=== PATIENT | female | born 1970 | race Caucasian/White ===

== ENCOUNTER 2016-08-24 19:16 | Emergency (ER) | payer OTHER ==
[2016-08-24] MEDS ORDERED: NORCO 5/325 MG PO ONE (20:14)
--- NOTE | 2016-08-24 20:19 | ERPHSYRPT ---
- History of Present Illness Time Seen by Provider: 08/24/16 20:11 Source: patient Physician History: CC: toe fracture Hx: 46 y/o patient of Dr Barbie Moctezuma was visiting [facility] yesterday. Bumped or stubbed right 5th toe while leaving. She has pain and bruising to the right foot. Had OP xray which showed nondisplaced right 5th toe fx. Dr sent her to ER for attention. She takes vicodin at home. She has Rx for new antiinflammatory ( unsure name) which she got yesterday but has not yet started. No allergies. Pain moderate and worse with walking. Allergies/Adverse Reactions: No Known Drug Allergies Allergy (Verified 06/18/15 15:11) Home Medications: Cyclobenzaprine HCl [Flexeril] 5 mg PO TID 11/27/14 [History] Clonazepam 0.5 mg [Klonopin 0.5 MG] 0.5 mg PO DAILY 04/23/15 [History] Hydrocodone Bit/Acetaminophen [[place] 7.5-325 Tablet] 1 each PO Q6HPRN PRN [History] Venlafaxine HCl 37.5 mg [Effexor 37.5 mg] 150 mg PO DAILY 08/17/15 [ History] Topiramate [Topamax] 50 mg PO BID 09/28/15 [History] PANTOPRAZOLE 40 mg Tablet [Protonix 40MG Tablet] 40 mg PO QAM 05/05/16 [ History] Sucralfate 1 gm [Carafate 1 GM] 1 g PO QID 05/05/16 [History] Hx Tetanus, Diphtheria Vaccination/Date Given: Yes (up to date) Hx Influenza Vaccination/Date Given: Yes Hx Pneumococcal Vaccination/Date Given: No - Review of Systems Constitutional: No Symptoms Musculoskeletal: Injury (right foot), No Back Pain, No Joint Swelling Neurological: No Focal Weakness, No Parasthesia - Past Medical History Pertinent Past Medical History: Yes Neurological History: Migraines Cardiac History: Hypertension Respiratory History: Pneumonia, Other Endocrine Medical History: Other Musculoskeletal History: Fractures, Osteoarthritis Other Medical History: liver enzymes are increased at times, SOB at times, - Past Surgical History Past Surgical History: Yes Gastrointestinal: Cholecystectomy Female Surgical History: Hysterectomy, Tubal Ligation, Other - Social History Smoking Status: Current every day smoker How long have you smoked: 15 Exposure to second hand smoke: No Drug Use: none Patient Lives Alone: Yes - Female History Hx Now: No - Physical Exam General Appearance: alert Eyes, Ears, Nose, Throat Exam: moist mucous membranes Cardiovascular/Respiratory Exam: regular rate/rhythm Neuro/Tendon Exam: normal sensation, normal motor functions 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, oriented x 3, cooperative Skin Exam: warm, dry Comments: right foot has some bruising 5th. Pulse intact. Tender right 5th toe. Skin intact. No swelling. - Course Nursing assessment & vital signs reviewed: Yes Ordered Tests: Active Orders 24 hr Category Date Time Status Splint STAT Care 08/24/16 20:14 Active FOOT (MINIMUM 3 VIEWS) Routine Exams 08/24/16 Taken Medication Summary Generic Name Dose Route Start Last Admin Trade Name Freq PRN Reason Stop Dose Admin Hydrocodone Bitart/Acetaminophen 1 tab 08/24/16 20:14 [place] 5/325 Mg PO 08/24/16 20:15 STAT ONE - Progress Progress Note: 08/24/16 20:17 Will olive tape and use post op shoe. Will release with instr. Counseled pt/family regarding: diagnosis, need for follow-up, rad results - Departure Time of Disposition: 20:17 Departure Disposition: Home Clinical Impression: Fracture of fifth toe, right, closed Condition: Stable Critical Care Time: No Referrals: TAL MOCTEZUMA [Primary Care Provider] - Instructions: Toe Fracture Additional Instructions: Ice, rest, post op shoe. Elevate. Use your anti-inflammatory medication as already prescribed.
[2016-08-24] MEDS ORDERED: NORCO 5/325 MG ONE (20:25)
[2016-08-24 20:36] VITALS: BP 120/56; PULSE 88; O2SAT 99
--- NOTE | 2016-08-25 08:32 | XRAY ---
Indication: Lateral pain following injury. Comparison: None 3 nonweightbearing views of the right foot demonstrates nondisplaced oblique fracture involving the shaft of the 5th proximal phalanx with adjacent soft tissue swelling. No other bony, articular, or soft tissue abnormalities.
== END 2016-08-24 20:36 | disposition home or self-care (01) ==
LOC: RAD 19:16 → ED 19:16 → EDSTATUS 20:05 → ED 20:36
DX: S92.501A Displaced unspecified fracture of right lesser toe(s), initial encounter for closed fracture (principal); W22.01XA Walked into wall, initial encounter
CPT/HCPCS: 73630; 99283; A9270-GY

== ENCOUNTER 2016-09-12 22:14 | Emergency (ER) | payer OTHER ==
[2016-09-12] MEDS ORDERED: Phenergan 25 MG INJ IM ONE (23:02)
[2016-09-12] MEDS ORDERED: Hydromorphone 1 mg/ml Ampule IM ONE (23:02)
--- NOTE | 2016-09-12 23:08 | ERPHSYRPT ---
- History of Present Illness Time Seen by Provider: 09/12/16 22:52 Source: patient Exam Limitations: no limitations Patient Subjective Stated Complaint: pt states she has had a migraine since 3 days ago and has been vomiting since yesterday. Triage Nursing Assessment: pt awake and alert. states her head hurts too bad to answer questions . pt ambualtory with steady gait noted. respirations nonlabored with lungs cta. pupils equal and reactive. bilat upper and lower ext strength wnl. Physician History: FOR THE PAST 3 DAYS PT HAS HAD A MIGRAINE HEADACHE IN THE USUAL LOCATION(OCCIPUT ) WITH NAUSEA, VOMITING X20 AND PHOTOPHOBIA. PT DENIES CHEST PAIN, SHORTNESS OF AIR, NUMBNESS, WEAKNESS. PT HAS HAD MIGRAINES FOR THE PAST 33 YEARS; LAST HEAD CT WAS 1 YEAR AGO & WNL. Allergies/Adverse Reactions: No Known Drug Allergies Allergy (Verified 06/18/15 15:11) Home Medications: Cyclobenzaprine HCl [Flexeril] 5 mg PO TID 11/27/14 [History] Clonazepam 0.5 mg [Klonopin 0.5 MG] 0.5 mg PO DAILY 04/23/15 [History] Hydrocodone Bit/Acetaminophen [[place] 7.5-325 Tablet] 1 each PO Q6HPRN PRN [History] Venlafaxine HCl 37.5 mg [Effexor 37.5 mg] 150 mg PO DAILY 08/17/15 [ History] Topiramate [Topamax] 50 mg PO BID 09/28/15 [History] PANTOPRAZOLE 40 mg Tablet [Protonix 40MG Tablet] 40 mg PO QAM 05/05/16 [ History] Sucralfate 1 gm [Carafate 1 GM] 1 g PO QID 05/05/16 [History] Hx Tetanus, Diphtheria Vaccination/Date Given: Yes (up to date) Hx Influenza Vaccination/Date Given: Yes Hx Pneumococcal Vaccination/Date Given: No Immunizations Up to Date: Yes - Review of Systems Eyes: Photophobia Abdominal/Gastrointestinal: Nausea, Vomiting Neurological: Headache All Other Systems: Reviewed and Negative - Past Medical History Pertinent Past Medical History: Yes Neurological History: Migraines Cardiac History: Hypertension Respiratory History: Pneumonia, Other Endocrine Medical History: Other Musculoskeletal History: Fractures, Osteoarthritis Other Medical History: liver enzymes are increased at times, SOB at times, - Past Surgical History Past Surgical History: Yes Gastrointestinal: Cholecystectomy Female Surgical History: Hysterectomy, Tubal Ligation, Other - Social History Smoking Status: Current every day smoker How long have you smoked: 15 Exposure to second hand smoke: No Drug Use: none Patient Lives Alone: Yes - Female History Hx Last Menstrual Period: hyster Hx Now: No - Nursing Vital Signs Nursing Vital Signs: Initial Vital Signs Temperature 98.1 F Temperature Source Oral Pulse Rate 73 Respiratory Rate 18 Blood Pressure [Right Arm] 131/78 Pain Intensity 8 - Physical Exam General Appearance: alert Eye Exam: PERRL/EOMI, photophobia Ears, Nose, Throat Exam: TMs normal, pharynx normal, moist mucous membranes Neck Exam: normal inspection Respiratory Exam: lungs clear Cardiovascular Exam: normal heart sounds Gastrointestinal/Abdominal Exam: soft, normal bowel sounds Extremity Exam: normal inspection, normal range of motion 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, 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 Exam: normal hearing, normal speech, PERRL Motor/Sensory Exam: no motor deficit, no sensory deficit, negative Babinski's sign Skin Exam: warm, dry SpO2 Interpretation: normal SpO2: 99 Oxygen Delivery: Room Air - Course Nursing assessment & vital signs reviewed: Yes Ordered Tests: Medication Summary Discontinued Medications Generic Name Dose Route Start Last Admin Trade Name Freq PRN Reason Stop Dose Admin Hydromorphone HCl 2 mg 09/12/16 23:02 Hydromorphone 1 Mg/Ml Ampule IM 09/12/16 23:03 STAT ONE Promethazine HCl 25 mg 09/12/16 23:02 Phenergan 25 Mg Inj IM 09/12/16 23:03 STAT ONE - Departure Time of Disposition: 23:09 Departure Disposition: Home Clinical Impression: MIGRAINE HEADACHE Condition: Stable Critical Care Time: No Instructions: Headache Additional Instructions: FOLLOW UP WITH PRIVATE DOCTOR TOMORROW. Prescriptions: Promethazine HCl 25 mg [Phenergan 25 mg] 25 mg PO Q4H PRN PRN #14 tablet PRN Reason: Nausea/Vomiting
[2016-09-12] MEDS ORDERED: Phenergan 25 MG INJ ONE (23:23)
[2016-09-12] MEDS ORDERED: Hydromorphone 1 mg/ml Ampule ONE (23:23)
[2016-09-13 00:05] VITALS: BP 111/59; PULSE 61; O2SAT 98
== END 2016-09-13 00:05 | disposition home or self-care (01) ==
LOC: ED 22:14
DX: G43.909 Migraine, unspecified, not intractable, without status migrainosus (principal)
CPT/HCPCS: 96372; 99284; J1170; J2550

== ENCOUNTER 2016-09-13 19:24 | Emergency (ER) | payer OTHER ==
[2016-09-13] MEDS ORDERED: TORAdol 30 mg Injection IM ONE (20:45)
--- NOTE | 2016-09-13 20:45 | ERPHSYRPT ---
- History of Present Illness Time Seen by Provider: 09/13/16 20:32 Source: patient Exam Limitations: no limitations (physical activity on) Patient Subjective Stated Complaint: pt states she was in the ER last night with a migraine that has been going on for about 5 days, headache still continues today, has began vomiting, unable to keep anything down Triage Nursing Assessment: pt ambulated onto unit, a&o x3, skin warm and pink, has an emesis bag that she has been spitting into, had washcloth over eyes complaining of light Physician History: The patient is a 46-year-old female with a friend complaining of a headache on the back left side of her head for 5 days. She is now vomiting. She came in to this ER last night for the same condition and received Dilaudid without relief. She's had a long history of migraine headaches. Her headaches changed 5 years ago when she fell down a set of stairs hurting her head. She did not have any aura preceding this headache. She states that there is a small area on the left back side of her head that is tender. Her past medical history significant for migraine headaches, UTI, chronic pain, and GERD. Timing/Duration: day(s) (5) Quality: sharpness, tightness Head Pain Location: occipital, parietal Severity of Pain-Max: moderate Severity of Pain-Current: moderate Recent Head Trauma: frequent headaches Modifying Factors: Improves With: medication Associated Symptoms: nausea/vomiting Previous symptoms: same symptoms as today Allergies/Adverse Reactions: No Known Drug Allergies Allergy (Verified 06/18/15 15:11) Home Medications: Cyclobenzaprine HCl [Flexeril] 10 mg PO TID 11/27/14 [History] Clonazepam 0.5 mg [Klonopin 0.5 MG] 0.5 mg PO DAILY 04/23/15 [History] Hydrocodone Bit/Acetaminophen [[place] 7.5-325 Tablet] 1 each PO Q6HPRN PRN [History] Venlafaxine HCl 37.5 mg [Effexor 37.5 mg] 150 mg PO DAILY 08/17/15 [ History] Topiramate [Topamax] 50 mg PO BID 09/28/15 [History] PANTOPRAZOLE 40 mg Tablet [Protonix 40MG Tablet] 40 mg PO QAM 05/05/16 [ History] Sucralfate 1 gm [Carafate 1 GM] 1 g PO QID 05/05/16 [History] Hx Tetanus, Diphtheria Vaccination/Date Given: Yes (up to date) Hx Influenza Vaccination/Date Given: Yes Hx Pneumococcal Vaccination/Date Given: No - Review of Systems Constitutional: No Fever, No Chills Eyes: No Symptoms Ears, Nose, & Throat: No Symptoms Respiratory: No Cough, No Dyspnea Cardiac: No Chest Pain, No Edema, No Syncope Abdominal/Gastrointestinal: Nausea, Vomiting Genitourinary Symptoms: No Dysuria Musculoskeletal: No Back Pain, No Neck Pain Skin: No Rash Neurological: Headache Psychological: No Symptoms Endocrine: No Symptoms Hematologic/Lymphatic: No Symptoms Immunological/Allergic: No Symptoms All Other Systems: Reviewed and Negative - Past Medical History Pertinent Past Medical History: Yes Neurological History: Migraines Cardiac History: Hypertension Respiratory History: Pneumonia, Other Endocrine Medical History: Other Musculoskeletal History: Fractures, Osteoarthritis Other Medical History: liver enzymes are increased at times, SOB at times, - Past Surgical History Past Surgical History: Yes Gastrointestinal: Cholecystectomy Female Surgical History: Hysterectomy, Tubal Ligation, Other - Social History Smoking Status: Current every day smoker How long have you smoked: 15 Exposure to second hand smoke: No Drug Use: none Patient Lives Alone: Yes - Female History Hx Now: No - Nursing Vital Signs Nursing Vital Signs: Initial Vital Signs Temperature 97.9 F Temperature Source Oral Pulse Rate 81 Respiratory Rate 18 Blood Pressure [Right Arm] 117/70 Pain Intensity 9 - Physical Exam General Appearance: mild distress Eye Exam: PERRL/EOMI Ears, Nose, Throat Exam: normal ENT inspection, moist mucous membranes Neck Exam: normal inspection, supple, full range of motion, other (Palpation of the superior aspect of the left neck and inferior aspect of the left occiput is significant for point tenderness that reproduces the pain the patient is having for her headache. 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 Exam: normal speech, PERRL, No facial droop Coordination/Gait Exam: normal cerebellar function Motor/Sensory Exam: no motor deficit, no sensory deficit Skin Exam: normal color, warm, dry, No rash SpO2 Interpretation: normal SpO2: 99 Oxygen Delivery: Room Air - Progress Progress: improved Blood Culture(s) Obtained: No Antibiotics given: No Counseled pt/family regarding: diagnosis - Departure Time of Disposition: 20:54 Departure Disposition: Home Clinical Impression: Tension headache, Vomiting Condition: Stable Critical Care Time: No Additional Instructions: You were given Toradol 60 mg, Phenergan 50 mg, and Flexeril 10 mg in the ER for your headache. You have a tension headache. Tried reduce the stressors in your life. Follow-up as needed.
[2016-09-13] MEDS ORDERED: Phenergan 25 MG INJ IM ONE (20:46)
[2016-09-13] MEDS ORDERED: Cyclobenzaprine 10 MG PO ONE (20:47)
[2016-09-13] MEDS ORDERED: Cyclobenzaprine 10 MG ONE (20:53)
[2016-09-13] MEDS ORDERED: TORAdol 30 mg Injection ONE (20:53)
[2016-09-13] MEDS ORDERED: Phenergan 25 MG INJ ONE (20:53)
[2016-09-13 21:04] VITALS: BP 119/61; PULSE 69; O2SAT 100
== END 2016-09-13 21:15 | disposition home or self-care (01) ==
LOC: ED 19:24
DX: G44.209 Tension-type headache, unspecified, not intractable (principal); R11.10 Vomiting, unspecified
CPT/HCPCS: 96372; 99284; J1885; J2550; A9270-GY

== ENCOUNTER 2016-12-09 19:04 | Emergency (ER) | payer OTHER ==
[2016-12-09] MEDS ORDERED: TORAdol 30 mg Injection IM ONE (19:24)
[2016-12-09] MEDS ORDERED: Phenergan 25 MG INJ IM ONE ×2 (19:24)
--- NOTE | 2016-12-09 19:27 | ERPHSYRPT ---
- History of Present Illness Time Seen by Provider: 12/09/16 19:25 Source: patient Exam Limitations: no limitations Patient Subjective Stated Complaint: pt complains of migraine for 3 days. today also reports lower back pain. also has nausea and vomiting x2. states she is unable to keep anything down today. also complains of photosensitivity. Triage Nursing Assessment: pt is aox3, pupils perrl, radial pulses strong and equal. 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 resps are easy and non labored. skin is pink warm dry Physician History: pt complains of migraine for 3 days. today also reports lower back pain. also has nausea and vomiting x2. states she is unable to keep anything down today. also complains of photosensitivity. Timing/Duration: day(s) (3 days) Severity of Pain-Max: moderate Severity of Pain-Current: severe Recent Head Trauma: frequent headaches Associated Symptoms: sensitive to light, vision changes Previous symptoms: same symptoms as today Allergies/Adverse Reactions: No Known Drug Allergies Allergy (Verified 12/09/16 19:18) Home Medications: Cyclobenzaprine HCl [Flexeril] 10 mg PO TID 11/27/14 [History] Clonazepam 0.5 mg [Klonopin 0.5 MG] 0.5 mg PO DAILY 04/23/15 [History] Hydrocodone Bit/Acetaminophen [[place] 7.5-325 Tablet] 1 each PO Q6HPRN PRN [History] Venlafaxine HCl 37.5 mg [Effexor 37.5 mg] 150 mg PO DAILY 08/17/15 [ History] Topiramate [Topamax] 50 mg PO BID 09/28/15 [History] PANTOPRAZOLE 40 mg Tablet [Protonix 40MG Tablet] 40 mg PO QAM 05/05/16 [ History] Sucralfate 1 gm [Carafate 1 GM] 1 g PO QID 05/05/16 [History] Hx Tetanus, Diphtheria Vaccination/Date Given: Yes Hx Influenza Vaccination/Date Given: No Hx Pneumococcal Vaccination/Date Given: No Immunizations Up to Date: Yes - Review of Systems Constitutional: No Fever, No Chills Eyes: No Symptoms Ears, Nose, & Throat: No Symptoms Respiratory: No Cough, No Dyspnea Cardiac: No Chest Pain, No Edema, No Syncope Abdominal/Gastrointestinal: No Abdominal Pain, No Nausea, No Vomiting, No Diarrhea Genitourinary Symptoms: No Dysuria Musculoskeletal: No Back Pain, No Neck Pain Skin: No Rash Neurological: Headache, No Dizziness, No Focal Weakness, No Sensory Changes Psychological: No Symptoms Endocrine: No Symptoms All Other Systems: Reviewed and Negative - Past Medical History Pertinent Past Medical History: Yes Neurological History: Migraines Cardiac History: Hypertension Respiratory History: Pneumonia, Other Endocrine Medical History: Other Musculoskeletal History: Fractures, Osteoarthritis Other Medical History: liver enzymes are increased at times, SOB at times, 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 - Past Surgical History Past Surgical History: Yes Gastrointestinal: Cholecystectomy Female Surgical History: Hysterectomy, Tubal Ligation, Other - Social History Smoking Status: Current every day smoker How long have you smoked: 15 Exposure to second hand smoke: No Drug Use: none Patient Lives Alone: No - Female History Hx Last Menstrual Period: Hx Now: No - Nursing Vital Signs Nursing Vital Signs: Initial Vital Signs Temperature 97.9 F 12/09/16 19:07 Pulse Rate 88 12/09/16 19:07 Respiratory Rate 18 12/09/16 19:07 Blood Pressure 107/57 12/09/16 19:07 O2 Sat by Pulse Oximetry 99 12/09/16 19:07 Pain Scale Pain Intensity 9 - Physical Exam General Appearance: no apparent distress Eye Exam: PERRL/EOMI Ears, Nose, Throat Exam: normal ENT inspection, moist mucous membranes Neck Exam: normal inspection, supple, full range of motion, No meningismus Respiratory Exam: normal breath sounds, lungs clear Cardiovascular Exam: regular rate/rhythm, normal heart sounds Gastrointestinal/Abdominal Exam: soft, No tenderness, No distention Back Exam: normal inspection, normal range of motion 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, 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 x 3, 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: normal speech, PERRL, No facial droop Coordination/Gait Exam: normal cerebellar function Motor/Sensory Exam: no motor deficit, no sensory deficit Skin Exam: normal color, warm, dry, No rash SpO2: 99 Oxygen Delivery: Room Air - Course Nursing assessment & vital signs reviewed: Yes Ordered Tests: Medication Summary Discontinued Medications Generic Name Dose Route Start Last Admin Trade Name Freq PRN Reason Stop Dose Admin Ketorolac Tromethamine 60 mg 12/09/16 19:24 Toradol 30 Mg Injection IM 12/09/16 19:25 STAT ONE Promethazine HCl 12.5 mg 12/09/16 19:24 Phenergan 25 Mg Inj IM 12/09/16 19:25 STAT ONE Promethazine HCl 25 mg 12/09/16 19:24 Phenergan 25 Mg Inj IM 12/09/16 19:25 STAT ONE - Progress Progress: improved Air Movement: good Counseled pt/family regarding: diagnosis, need for follow-up - Departure Time of Disposition: 19:49 Departure Disposition: Home Clinical Impression: Migraine Qualifiers: Migraine type: with aura Status migrainosus presence: without status migrainosus Intractability: intractable Qualified Code(s): G43.119 - Migraine with aura, intractable, without status migrainosus Condition: Stable Critical Care Time: No Referrals: TAL MOCTEZUMA [Primary Care Provider] - Instructions: Migraine, Headache Additional Instructions: HEADACHE 1. After discharge from the emergency department, you should rest at home in a cool, dark, quiet place for 12-24 hours. 2. If any of the following signs or symptoms are noticed, you should be re- evaluated right away: A. Visual changes B. Stiff Neck C. Change in quality or location of pain D. Fever E. Recurrent vomiting 3. If pain medications were prescribed or given, they may cause drowsiness.
[2016-12-09] MEDS ORDERED: TORAdol 30 mg Injection ONE (19:46)
[2016-12-09] MEDS ORDERED: Phenergan 25 MG INJ ONE (19:46)
[2016-12-09 20:08] VITALS: BP 117/60; PULSE 90; O2SAT 100
== END 2016-12-09 20:14 | disposition home or self-care (01) ==
LOC: ED 19:04
DX: G43.119 Migraine with aura, intractable, without status migrainosus (principal); M54.5 Low back pain; R11.2 Nausea with vomiting, unspecified; I10 Essential (primary) hypertension
CPT/HCPCS: 96372; 99283; J1885; J2550

== ENCOUNTER 2017-06-25 12:09 | Emergency (ER) | payer OTHER ==
[2017-06-25] MEDS ORDERED: TORAdol 30 mg Injection IM ONE (12:32)
[2017-06-25] MEDS ORDERED: Norflex 60 MG/2 ML IM ONE (12:32)
[2017-06-25] MEDS ORDERED: Norflex 60 MG/2 ML ONE (12:35)
[2017-06-25] MEDS ORDERED: TORAdol 30 mg Injection ONE ×2 (12:35→12:37)
--- NOTE | 2017-06-25 12:38 | ERPHSYRPT ---
- History of Present Illness Time Seen by Provider: 06/25/17 12:27 Source: patient Patient Subjective Stated Complaint: pt here for multi cos . headache since monday, sob and pain with deep breath today, vomiting today, no fever Triage Nursing Assessment: pt alert, walked in resp easy, skin w/d/p. no cough , no edema Physician History: CC: headache Hx: 46 y/o patient of Dr Barbie Moctezuma. She has hx of chronic pain syndrome. She takes norco. She has headache, similar to prior headaches, not relieved with icepacks. No fever. She took phenergan for nausea. She has some muscle pain in left back. No chest pain. No cough. No shortness of breath. No abd pain. Allergies/Adverse Reactions: No Known Drug Allergies Allergy (Verified 06/25/17 12:20) Home Medications: Cyclobenzaprine HCl [Flexeril] 10 mg PO TID 11/27/14 [History] Clonazepam 0.5 mg [Klonopin 0.5 MG] 0.5 mg PO DAILY 04/23/15 [History] Hydrocodone Bit/Acetaminophen [[place] 7.5-325 Tablet] 1 each PO Q6HPRN PRN [History] Venlafaxine HCl 37.5 mg [Effexor 37.5 mg] 150 mg PO DAILY 08/17/15 [ History] Topiramate [Topamax] 50 mg PO BID 09/28/15 [History] PANTOPRAZOLE 40 mg Tablet [Protonix 40MG Tablet] 40 mg PO QAM 05/05/16 [ History] Sucralfate 1 gm [Carafate 1 GM] 1 g PO QID 05/05/16 [History] Hx Tetanus, Diphtheria Vaccination/Date Given: No Hx Influenza Vaccination/Date Given: No Hx Pneumococcal Vaccination/Date Given: No Immunizations Up to Date: Yes - Review of Systems Constitutional: No Fever, No Chills Eyes: No Symptoms Ears, Nose, & Throat: No Symptoms Respiratory: No Cough, No Dyspnea Cardiac: No Chest Pain Abdominal/Gastrointestinal: Nausea, No Abdominal Pain, No Vomiting Musculoskeletal: Back Pain, No Neck Pain Skin: No Rash Neurological: Headache, No Focal Weakness, No Parasthesia All Other Systems: Reviewed and Negative - Past Medical History Pertinent Past Medical History: Yes Neurological History: Migraines Cardiac History: Hypertension Respiratory History: Pneumonia, Other Endocrine Medical History: Other Musculoskeletal History: Fractures, Osteoarthritis Other Medical History: liver enzymes are increased at times, SOB at times, 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 - Past Surgical History Past Surgical History: Yes Gastrointestinal: Cholecystectomy Female Surgical History: Hysterectomy, Tubal Ligation, Other - Social History Smoking Status: Current every day smoker How long have you smoked: 15 Exposure to second hand smoke: No Drug Use: none Patient Lives Alone: No - Female History Hx Last Menstrual Period: hyster Hx Now: No - Nursing Vital Signs Nursing Vital Signs: Initial Vital Signs Temperature 97.7 F 06/25/17 12:15 Pulse Rate 82 06/25/17 12:15 Respiratory Rate 16 06/25/17 12:15 Blood Pressure 104/78 06/25/17 12:15 O2 Sat by Pulse Oximetry 98 06/25/17 12:15 Pain Scale Pain Intensity 9 - Physical Exam General Appearance: alert Eye Exam: PERRL/EOMI Ears, Nose, Throat Exam: normal ENT inspection, moist mucous membranes Neck Exam: normal inspection, non-tender, supple Respiratory Exam: normal breath sounds Cardiovascular Exam: regular rate/rhythm Gastrointestinal/Abdomen Exam: soft, No tenderness, No distention Back Exam: normal inspection, point tenderness (left paraspinous muscles, thoracic), No vertebral tenderness Extremity Exam: normal inspection, No pedal edema Neurologic Exam: alert, oriented x 3, 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 Plans refill this week. INSEPCT reviewed. Toradol and norflex given here for symptom relief. Counseled pt/family regarding: diagnosis, need for follow-up - Departure Time of Disposition: 12:37 Departure Disposition: Home Clinical Impression: Spasm of thoracic back muscle Migraine headache Qualifiers: Migraine type: unspecified Status migrainosus presence: without status migrainosus Intractability: not intractable Qualified Code(s): G43.909 - Migraine, unspecified, not intractable, without status migrainosus Condition: Stable Critical Care Time: No Referrals: TAL MOCTEZUMA [Primary Care Provider] - Instructions: Migraine Headache (DC), Upper Back Pain (DC) Additional Instructions: HEADACHE 1. After discharge from the emergency department, you should rest at home in a cool, dark, quiet place for 12-24 hours. 2. If any of the following signs or symptoms are noticed, you should be re- evaluated right away: A. Visual changes B. Stiff Neck C. Change in quality or location of pain D. Fever E. Recurrent vomiting 3. If pain medications were prescribed or given, they may cause drowsiness. BACK INJURY 1. May apply moist heat frequently for relief of pain. Take care not to burn the skin. Do not use heat for more than 30 minutes at a time. 2. Try to sleep on a firm bed, flat on your back. 3. If no improvement is noticed in 2-3 days, follow up with your family physician. 4. If you notice any numbness, tingling, weakness, or problems with your bowel or bladder, you should call your family physician or return to the emergency department. No driving today. Follow up with Dr Barbie Moctezuma.
[2017-06-25 13:04] VITALS: PULSE 72
[2017-06-25 13:33] VITALS: BP 106/74; O2SAT 98
== END 2017-06-25 13:32 | disposition home or self-care (01) ==
LOC: ED 12:09
DX: G43.909 Migraine, unspecified, not intractable, without status migrainosus (principal); M62.830 Muscle spasm of back; Z79.899 Other long term (current) drug therapy
CPT/HCPCS: 96372; 96374; 99283; 99284; J1885; J2360

== ENCOUNTER 2018-05-18 14:05 | Emergency (ER) | payer MEDICAID, OTHER ==
[2018-05-18 14:16] VITALS: O2SAT 98
[2018-05-18] MEDS ORDERED: TORAdol 30 mg Injection IM ONE (14:24)
--- NOTE | 2018-05-18 14:31 | ERPHSYRPT ---
- History of Present Illness Time Seen by Provider: 05/18/18 14:15 Source: patient Exam Limitations: clinical condition Patient Subjective Stated Complaint: Pt states "On monday I was going to the car and I slipped on ice and landed flat on my backside. Now my tailbone hurts and the pain is shooting down into my legs and up into my back." Triage Nursing Assessment: Pt alert and oriented X 3, skin pwd Pt ambualtes with a slow upright steady gait, able to speak in clear full sentences. Physician History: PATIENT WITH A HISTORY OF MIGRAINE HEADACHE, CHRONIC LOW BACK PAIN, DEGENERATIVE DISC DISEASE WHO COMPLAINS OF A SLIP AND FALL 5 DAYS AGO LANDED ONTO HER TAILBONE AND HAS PERSISTENT PAIN. DENIES ASSOCIATED HEAD, NECK AND BACK INJURY. Occurred: days ago (5) Reason for Fall: slipped Injuries/Pain Location: back Loss of Consciousness: no loss of consciousness Quality: throbbing Severity of Pain-Max: moderate Severity of Pain-Current: moderate Modifying Factors: Improves With: other (SITTING POSITION) Associated Symptoms (Fall): denies symptoms Allergies/Adverse Reactions: No Known Drug Allergies Allergy (Verified 06/25/17 12:20) Home Medications: Cyclobenzaprine HCl [Flexeril] 10 mg PO TID 11/27/14 [History] Clonazepam 0.5 mg [Klonopin 0.5 MG] 0.5 mg PO DAILY 04/23/15 [History] Hydrocodone Bit/Acetaminophen [[place] 7.5-325 Tablet] 1 each PO Q6HPRN PRN [History] Venlafaxine HCl 37.5 mg [Effexor 37.5 mg] 150 mg PO DAILY 08/17/15 [ History] Topiramate [Topamax] 50 mg PO BID 09/28/15 [History] PANTOPRAZOLE 40 mg Tablet [Protonix 40MG Tablet] 40 mg PO QAM 05/05/16 [ History] Sucralfate 1 gm [Carafate 1 GM] 1 g PO QID 05/05/16 [History] Hx Tetanus, Diphtheria Vaccination/Date Given: No Hx Influenza Vaccination/Date Given: Yes Hx Pneumococcal Vaccination/Date Given: No Immunizations Up to Date: Yes - Review of Systems Constitutional: No Symptoms, No Fever, No Chills Eyes: No Symptoms Ears, Nose, & Throat: No Symptoms Respiratory: No Symptoms, No Cough, No Dyspnea Cardiac: No Symptoms, No Chest Pain, No Edema, No Syncope Abdominal/Gastrointestinal: No Abdominal Pain, No Nausea, No Vomiting, No Diarrhea Genitourinary Symptoms: No Dysuria Musculoskeletal: Other (TAIL BONE PAIN), No Back Pain, No Neck Pain Skin: No Rash Neurological: No Dizziness, No Focal Weakness, No Sensory Changes Psychological: No Symptoms Endocrine: No Symptoms All Other Systems: Reviewed and Negative - Past Medical History Pertinent Past Medical History: Yes Neurological History: Migraines Cardiac History: Hypertension Respiratory History: Pneumonia, Other Endocrine Medical History: Other Musculoskeletal History: Fractures, Osteoarthritis Other Medical History: liver enzymes are increased at times, SOB at times, 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 - Past Surgical History Past Surgical History: Yes Gastrointestinal: Cholecystectomy Female Surgical History: Hysterectomy, Tubal Ligation, Other - Social History Smoking Status: Former smoker How long have you smoked: 15 Exposure to second hand smoke: No Drug Use: none Patient Lives Alone: No - Female History Hx Now: No - Nursing Vital Signs Nursing Vital Signs: Initial Vital Signs Temperature 98.0 F 05/18/18 14:09 Pulse Rate 80 05/18/18 14:09 Respiratory Rate 16 05/18/18 14:09 Blood Pressure 102/70 05/18/18 14:09 O2 Sat by Pulse Oximetry 98 05/18/18 14:09 Pain Scale Pain Intensity [Posterior 8 Sacrum] Pain Intensity 7 - Physical Exam General Appearance: no apparent distress, alert Back Exam: normal inspection, normal range of motion, other (THERE IS MINIMAL TENDERNESS OVER COCCYX, NO SWELLING, CREPITUS OR ECCHYMOSIS. THERE IS NO SACROILAC TENDERNESS, NO LUMBAR SPINAL OR PARASPINAL TENDERNESS) SpO2: 98 - Radiology Exams Other X-ray Interpretation: Discussed w/ radiologist (COCCYX AND SACRUM WITH NO BONY, ARTICULAR OR SOFT TISSUE ABNORMALITIES) Ordered Tests: Active Orders 24 hr Category Date Time Status SACRUM AND COCCYX Stat Exams 05/18/18 14:43 Taken Medication Summary Discontinued Medications Generic Name Dose Route Start Last Admin Trade Name Freq PRN Reason Stop Dose Admin Ketorolac Tromethamine 60 mg 05/18/18 14:24 05/18/18 14:43 Toradol 30 Mg Injection IM 05/18/18 14:25 60 mg STAT ONE Administration Ketorolac Tromethamine Confirm 05/18/18 14:40 Toradol 30 Mg Injection Administered 05/18/18 14:41 Dose 60 mg .ROUTE .STK-MED ONE - Progress Progress: pain not gone completely Progress Note: 05/18/18 14:32 ADMINISTERED TORADOL 60MG IM, Counseled pt/family regarding: diagnosis, rad results - Departure Time of Disposition: 15:03 Departure Disposition: Home Clinical Impression: Coccyx contusion Condition: Stable Critical Care Time: No Referrals: TAL MOCTEZUMA [Primary Care Provider] - Additional Instructions: OBTAIN A DOUGHNUT AIR PILLOW TO SIT ON FOR COMFORT. TORADOL 10MG EVERY 6 HOURS FOR PAIN NEEDED. CONSULT YOUR PRIMARY CARE PROVIDER FOR FOLLOWUP. Prescriptions: Ketorolac Tromethamine [Toradol] 10 mg PO Q6H PRN PRN #20 tablet PRN Reason: Pain
[2018-05-18] MEDS ORDERED: TORAdol 30 mg Injection ONE (14:40)
--- NOTE | 2018-05-18 14:54 | XRAY ---
Indication: Coccygeal pain following fall 5 days ago. Comparison: None 3 views of the sacrum/coccyx obtained. No bony, articular, or soft tissue abnormalities.
[2018-05-18 15:03] VITALS: BP 100/72
[2018-05-18 15:19] VITALS: PULSE 70
== END 2018-05-18 15:17 | disposition home or self-care (01) ==
LOC: ED 14:05
DX: S30.0XXA Contusion of lower back and pelvis, initial encounter (principal); W00.0XXA Fall on same level due to ice and snow, initial encounter; Y92.89 Other specified places as the place of occurrence of the external cause; M54.5 Low back pain; G89.29 Other chronic pain; Z79.899 Other long term (current) drug therapy; I10 Essential (primary) hypertension
CPT/HCPCS: 72220; 96372; 99284; J1885

== ENCOUNTER 2018-10-19 12:37 | Emergency (ER) | payer MEDICAID, OTHER ==
[2018-10-19] MEDS ORDERED: Sodium Chloride 0.9% 1000 ML 1,000 ML IV STA (13:11)
[2018-10-19] MEDS ORDERED: TORAdol 30 mg Injection IM ONE (13:11)
[2018-10-19] MEDS ORDERED: Phenergan 25 MG INJ IM ONE (13:11)
--- NOTE | 2018-10-19 13:16 | ERPHSYRPT ---
- History of Present Illness Time Seen by Provider: 10/19/18 13:08 Source: patient Exam Limitations: no limitations Patient Subjective Stated Complaint: states has had a migraine for two days. states home meds are not helping. has vomited several times. Triage Nursing Assessment: ambulated to room per self. vomiting samll amts. skin w/d, color normal, resp easy. pierre. a/o times three. chong without difficulty. Physician History: 48-year-old white female arrives with complaint of a headache x2 days she states she's had some vomiting she states that she has [place] at home but she has not been taking it. Patient without any fevers. Past medical history includes migraines, high blood pressure, pneumonia, fractures, osteoarthritis, chronic pain syndrome. Past surgical history includes cholecystectomy hysterectomy, tubal ligation. Social history former smoker Timing/Duration: day(s) Severity: moderate (2 days) Modifying Factors: Improves With: nothing Associated Symptoms: nausea, vomiting, headaches, No abdominal pain, No shortness of breath, No heartburn, No diaphoresis, No cough, No chills, No chest pain, No fever, No loss of appetite, No malaise, No rash, No syncope, No seizure, No weakness Allergies/Adverse Reactions: No Known Drug Allergies Allergy (Verified 10/19/18 13:00) Home Medications: Clonazepam 0.5 mg [Klonopin 0.5 MG] 0.5 mg PO DAILY 04/23/15 [History] Hydrocodone Bit/Acetaminophen [[place] 7.5-325 Tablet] 1 each PO Q6HPRN PRN [History] Venlafaxine HCl 37.5 mg [Effexor 37.5 mg] 150 mg PO DAILY 08/17/15 [ History] Topiramate [Topamax] 50 mg PO BID 09/28/15 [History] Lipase/Protease/Amylase [[place] 24,000 Units Capsule] 1 each PO UD 10/19/18 [ History] Naratriptan HCl [Amerge] 2.5 mg PO UD 10/19/18 [History] Hx Tetanus, Diphtheria Vaccination/Date Given: Yes Hx Influenza Vaccination/Date Given: Yes Hx Pneumococcal Vaccination/Date Given: No - Review of Systems Constitutional: No Fever, No Chills Eyes: Photophobia, No Discharge, No Eye Pain, No Eye Redness, No Tearing, No Vision Changes, No Double Vision, No Foreign Body Sensation Ears, Nose, & Throat: No Symptoms Respiratory: No Cough, No Dyspnea Cardiac: No Chest Pain, No Edema, No Syncope Abdominal/Gastrointestinal: Nausea, Vomiting, No Abdominal Pain, No Diarrhea Genitourinary Symptoms: No Dysuria Musculoskeletal: No Back Pain, No Neck Pain Skin: No Rash Neurological: Headache, No Dizziness, No Focal Weakness, No Gait Changes, No Irritability, No Lethargy, No Paralysis, No Parasthesia, No Seizure, No Sensory Changes, No Speech Changes, No Tics, No Tremors, No Vertigo Psychological: No Symptoms Endocrine: No Symptoms All Other Systems: Reviewed and Negative - Past Medical History Pertinent Past Medical History: Yes Neurological History: Migraines Cardiac History: Hypertension Respiratory History: Pneumonia, Other Endocrine Medical History: Other Musculoskeletal History: Fractures, Osteoarthritis Other Medical History: liver enzymes are increased at times, SOB at times, 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 - Past Surgical History Past Surgical History: Yes Gastrointestinal: Cholecystectomy Female Surgical History: Hysterectomy, Tubal Ligation, Other - Social History Smoking Status: Current every day smoker How long have you smoked: 20 Exposure to second hand smoke: No Drug Use: none Patient Lives Alone: Yes - Female History Hx Now: No - Nursing Vital Signs Nursing Vital Signs: Initial Vital Signs Temperature 98.3 F 10/19/18 12:52 Pulse Rate 67 10/19/18 12:52 Respiratory Rate 18 10/19/18 12:52 Blood Pressure 127/74 10/19/18 12:52 O2 Sat by Pulse Oximetry 100 10/19/18 12:52 Pain Scale Pain Intensity 6 - Physical Exam General Appearance: moderate distress, alert Eye Exam: PERRL/EOMI, eyes nml inspection, photophobia, other (fundi unremarkable) Ears, Nose, Throat Exam: normal ENT inspection, TMs normal, pharynx normal, moist mucous membranes Neck Exam: normal inspection, non-tender, supple, full range of motion Respiratory Exam: normal breath sounds, lungs clear, No respiratory distress Cardiovascular Exam: regular rate/rhythm, normal heart sounds, normal peripheral pulses, capillary refill <2 sec Gastrointestinal/Abdomen Exam: soft, normal bowel sounds, No tenderness, No mass Back Exam: normal inspection, normal range of motion, No CVA tenderness, No vertebral tenderness Extremity Exam: normal inspection, normal range of motion, pelvis stable Neurologic Exam: alert, oriented x 3, cooperative, prosthodontist/educator II-XII nml as tested, normal mood/affect, nml cerebellar function, nml station & gait, sensation nml, No motor deficits Skin Exam: normal color, warm, dry, No rash SpO2 Interpretation: normal (100%) SpO2: 100 Ordered Tests: Medication Summary Discontinued Medications Generic Name Dose Route Start Last Admin Trade Name [place] PRN Reason Stop Dose Admin Sodium Chloride 1,000 mls @ 999 mls/hr 10/19/18 13:11 10/19/18 15:06 Sodium Chloride 0.9% 1000 Ml IV 10/19/18 14:11 Infused .Q1H1M STA Infusion Sodium Chloride Confirm 10/19/18 13:23 Sodium Chloride 0.9% 1000 Ml Administered 10/19/18 13:24 Dose 1,000 mls @ ud .ROUTE .STK-MED ONE Ketorolac Tromethamine 60 mg 10/19/18 13:11 10/19/18 13:30 Toradol 30 Mg Injection IM 10/19/18 13:12 60 mg STAT ONE Administration Ketorolac Tromethamine Confirm 10/19/18 13:23 Toradol 30 Mg Injection Administered 10/19/18 13:24 Dose 60 mg .ROUTE .STK-MED ONE Promethazine HCl 25 mg 10/19/18 13:11 10/19/18 13:29 Phenergan 25 Mg Inj IM 10/19/18 13:12 25 mg STAT ONE Administration Promethazine HCl Confirm 10/19/18 13:23 Phenergan 25 Mg Inj Administered 10/19/18 13:24 Dose 25 mg .ROUTE .STK-MED ONE - Progress Progress: improved Progress Note: 10/19/18 14:04 Patient is feeling better after IM Phenergan and IM Toradol. Will let patient received her IV fluids. And plan on discharging. Patient is chronically on hydrocodone/acetaminophen 7.5/325. - Departure Departure Disposition: Home Clinical Impression: Migraine Qualifiers: Migraine type: unspecified Status migrainosus presence: without status migrainosus Intractability: not intractable Qualified Code(s): G43.909 - Migraine, unspecified, not intractable, without status migrainosus Condition: Fair Critical Care Time: No Referrals: TAL MOCTEZUMA [Primary Care Provider] - Additional Instructions: Return home. Rest in a dark quiet room. Followup with your family if recurrent. Return for acute distress or for severe symptoms.
[2018-10-19] MEDS ORDERED: Phenergan 25 MG INJ ONE (13:23)
[2018-10-19] MEDS ORDERED: TORAdol 30 mg Injection ONE (13:23)
[2018-10-19] MEDS ORDERED: Sodium Chloride 0.9% 1000 ML 1,000 ML ONE (13:23)
[2018-10-19 15:05] VITALS: BP 91/58; PULSE 66
[2018-10-20 07:16] VITALS: O2SAT 100
== END 2018-10-19 15:11 | disposition home or self-care (01) ==
LOC: ED 12:37
DX: G43.909 Migraine, unspecified, not intractable, without status migrainosus (principal)
CPT/HCPCS: 36000; 96360; 96372; 99284; J1885; J2550

== ENCOUNTER 2019-05-10 16:53 | Emergency (ER) | payer OTHER ==
[2019-05-10] MEDS ORDERED: Hydromorphone 1 mg/ml Ampule IM ONE (18:08)
[2019-05-10] MEDS ORDERED: Phenergan 25 MG INJ IM ONE (18:09)
--- NOTE | 2019-05-10 18:16 | ERPHSYRPT ---
- History of Present Illness Time Seen by Provider: 05/10/19 17:20 Source: patient Exam Limitations: no limitations Patient Subjective Stated Complaint: Pt states that she has had a migraine for a couple of days and took naratriptine and topamax yesterday with no relief and has been vomiting today so she did not take any meds, pt has a hx of migraines, pt states that she gets more than 6 migraines a year but can usually control them Triage Nursing Assessment: Pt was brought to the ER by her boyfriend, pt is laying in the dark with a cold rag on her head, no difficulties with strength, PERRL, rates head pain 9/10, states that pain is in the back of her head and radiates down her neck, pulses normal, vitals wnl Physician History: This is a 52-year-old female who presents with her typical migraine. Patient tried her naratriptan and Topamax without any relief of her symptoms. She has light sensitivity and noise sensitivity. Patient was vomiting today and therefore she sought medical evaluation here in the emergency department. Patient sees her neurologist on a regular basis. She usually has 6 migraine episodes a year. Patient denies shortness of breath she denies flulike symptoms , she denies chest pain and denies abdominal pain. Timing/Duration: yesterday Quality: aching, throbbing Head Pain Location: global Severity of Pain-Max: moderate Severity of Pain-Current: moderate Recent Head Trauma: no recent headache/trauma, occasional headaches Modifying Factors: Improves With: exposure to light, noise Associated Symptoms: nausea/vomiting, sensitive to light, No fever/chills, No loss of consciousness, No neck pain, No stiff neck Previous symptoms: same symptoms as today Allergies/Adverse Reactions: No Known Drug Allergies Allergy (Verified 05/10/19 17:48) Home Medications: Clonazepam 0.5 mg [Klonopin 0.5 MG] 0.5 mg PO DAILY PRN 04/23/15 [History] Topiramate [Topamax] 100 mg PO BID 09/28/15 [History] Naratriptan HCl [Amerge] 2.5 mg PO UD PRN 10/19/18 [History] Gabapentin 300 mg PO DAILY 05/10/19 [History] Tizanidine HCl 4 mg [Zanaflex 4 MG] 4 mg PO DAILY 05/10/19 [History] Hx Tetanus, Diphtheria Vaccination/Date Given: Yes Hx Influenza Vaccination/Date Given: Yes Hx Pneumococcal Vaccination/Date Given: No - Review of Systems Constitutional: No Symptoms Eyes: No Symptoms Ears, Nose, & Throat: No Symptoms Respiratory: No Symptoms Cardiac: No Symptoms Abdominal/Gastrointestinal: Nausea, Vomiting Genitourinary Symptoms: No Symptoms Musculoskeletal: No Symptoms Skin: No Symptoms Neurological: No Symptoms Psychological: No Symptoms Endocrine: No Symptoms Hematologic/Lymphatic: No Symptoms Immunological/Allergic: No Symptoms All Other Systems: Reviewed and Negative - Past Medical History Pertinent Past Medical History: Yes Neurological History: Migraines Cardiac History: Hypertension Respiratory History: Pneumonia, Other Endocrine Medical History: Other Musculoskeletal History: Fractures, Osteoarthritis GI Medical History: No Pertinent History History: No Pertinent History Psycho-Social History: No Pertinent History Female Reproductive Disorders: No Pertinent History Other Medical History: liver enzymes are increased at times, SOB at times, 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 - Past Surgical History Past Surgical History: Yes Neuro Surgical History: No Pertinent History Cardiac: No Pertinent History Respiratory: No Pertinent History Gastrointestinal: Cholecystectomy Genitourinary: No Pertinent History Musculoskeletal: No Pertinent History Female Surgical History: Hysterectomy, Tubal Ligation, Other - Social History Smoking Status: Current every day smoker How long have you smoked: 20 Exposure to second hand smoke: Yes Drug Use: none Patient Lives Alone: No - Female History Hx Now: No (hysterectomy) - Nursing Vital Signs Nursing Vital Signs: Initial Vital Signs Temperature 98.0 F 05/10/19 17:33 Pulse Rate 85 05/10/19 17:33 Respiratory Rate 14 05/10/19 17:33 Blood Pressure 114/75 05/10/19 17:33 O2 Sat by Pulse Oximetry 100 05/10/19 17:33 Pain Scale Pain Intensity 9 - Physical Exam General Appearance: moderate distress, alert, anxiety Eye Exam: PERRL/EOMI, eyes nml inspection Ears, Nose, Throat Exam: normal ENT inspection, moist mucous membranes Neck Exam: normal inspection, non-tender, supple, full range of motion Respiratory Exam: normal breath sounds, lungs clear, airway intact, No chest tenderness, No respiratory distress Cardiovascular Exam: regular rate/rhythm, normal heart sounds, normal peripheral pulses Gastrointestinal/Abdominal Exam: No tenderness Extremity Exam: normal inspection, normal range of motion, pelvis stable 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, oriented x 3, cooperative water mangle tender Exam: normal hearing, normal speech Coordination/Gait Exam: normal gait Motor/Sensory Exam: no motor deficit, no sensory deficit Skin Exam: normal color, warm, dry Lymphatic Exam: No adenopathy SpO2 Interpretation: normal SpO2: 100 O2 Delivery: Room Air - Course Nursing assessment & vital signs reviewed: Yes Ordered Tests: Medication Summary Generic Name Dose Route Start Last Admin Trade Name Freq PRN Reason Stop Dose Admin Hydromorphone HCl 0.5 mg 05/10/19 18:08 Hydromorphone 1 Mg/Ml Ampule IM 05/10/19 18:09 STAT ONE Promethazine HCl 25 mg 05/10/19 18:09 Phenergan 25 Mg Inj IM 05/10/19 18:10 STAT ONE - Progress Progress: improved, re-examined Air Movement: good Blood Culture(s) Obtained: No Antibiotics given: No Counseled pt/family regarding: diagnosis, need for follow-up - Departure Departure Disposition: Home Clinical Impression: Migraine headache Condition: Stable Critical Care Time: No Referrals: TAL MOCTEZUMA [Primary Care Provider] - Additional Instructions: Follow-up with your neurologist for persistent symptoms. Drink plenty of fluids. Take your medication as prescribed Prescriptions: Ondansetron ODT 4 MG [Zofran Odt 4 mg] 4 mg PO Q6H PRN PRN #10 tab.rapdis PRN Reason: Vomiting
[2019-05-10] MEDS ORDERED: Phenergan 25 MG INJ ONE (18:26)
[2019-05-10] MEDS ORDERED: Hydromorphone 1 mg/ml Ampule ONE (18:26)
[2019-05-10 19:33] VITALS: BP 117/77; PULSE 72; O2SAT 96
== END 2019-05-10 19:33 | disposition home or self-care (01) ==
LOC: ED 16:53
DX: G43.909 Migraine, unspecified, not intractable, without status migrainosus (principal)
CPT/HCPCS: 96372; 99284; J1170; J2550

== ENCOUNTER 2024-02-02 08:42 | Emergency (ER) | payer OTHER ==
--- NOTE | 2024-02-02 08:48 | ERPHSYRPT ---
- History of Present Illness Time Seen by Provider: 02/02/24 08:48 Source: patient Exam Limitations: no limitations Physician History: This a 53-year-old white female patient who was brought over to the emergency department from the CT scanner in the radiology suite secondary to possible allergic reaction to contrast dye with questionable loss of consciousness. She does not recall all the events. She does have a history of a seizure in the recent past. She was undergoing a CT scan of the chest with contrast to continue the workup for her chronic intermittent chest discomfort. Patient denies head injury. She has no shortness of breath. She has no evidence of rash the itching has improved but still present. Patient has a history of migraine headache, hypertension, osteoarthritis, chronic intermittent elevated liver function tests. Patient states she is under a lot of stress with recent family member deaths. Patient's primary care provider is Dr. Wagner. Timing/Duration: today Severity: mild Character of Deficits: none Deficits: no difficulties Baseline/Normal Cognition: alert oriented x 3 Current Cognition: alert oriented x 3 Baseline Gait: walks w/o assistance Associated Symptoms: denies symptoms Allergies/Adverse Reactions: Iodinated Contrast Media Adverse Reaction (Severe, Verified 02/02/24 09:10) Headache HEADACHE WAS SO SEVERE WHILE IN CT THAT SHE WAS ADMITTED TO EMERGENCY ROOM Home Medications: Topiramate [Topamax] 25 mg PO DAILY 09/28/15 [History] Gabapentin 300 mg PO BID 05/10/19 [History] Cyanocobalamin 1000 Mcg/ml [Cyanocobalamin B-12 1000 MCG/ML] 1,000 mcg IJ UD 02/02/24 [History] Ezetimibe 10 mg [Zetia 10 MG] 10 mg PO DAILY 02/02/24 [History] Fremanezumab-Vfrm [Ajovy Autoinjector] 225 mg SQ UD 02/02/24 [History] Hydrocodone/Acetaminophen [Hydrocodone-Acetamin 7.5-325] 1 each PO TID 02/02/24 [History] Sertraline HCl [Zoloft] 25 mg PO DAILY 02/02/24 [History] risperiDONE [Risperdal] 0.5 mg PO DAILY 02/02/24 [History] Hx Tetanus, Diphtheria Vaccination/Date Given: Yes Hx Influenza Vaccination/Date Given: Yes Hx Pneumococcal Vaccination/Date Given: No Travel Risk - International Travel Have you traveled outside of the country in past 3 weeks: No - Emerging Infectious Disease Are you exhibiting symptoms associated with any current EIDs: No - Past Medical History Pertinent Past Medical History: Yes Neurological History: Migraines Cardiac History: Hypertension Respiratory History: Other, Pneumonia Endocrine Medical History: Other Musculoskeletal History: Fractures, Osteoarthritis GI Medical History: No Pertinent History History: No Pertinent History Psycho-Social History: No Pertinent History Female Reproductive Disorders: No Pertinent History Other Medical History: liver enzymes are increased at times, SOB at times, 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 - Past Surgical History Past Surgical History: Yes Neuro Surgical History: No Pertinent History Cardiac: No Pertinent History Respiratory: No Pertinent History Gastrointestinal: Cholecystectomy Genitourinary: No Pertinent History Musculoskeletal: No Pertinent History Female Surgical History: Hysterectomy, Tubal Ligation, Other - Female History Hx Last Menstrual Period: n/a - Social History Smoking Status: Current every day smoker How long have you smoked: 20 Exposure to second hand smoke: Yes Drug Use: none Patient Lives Alone: No - Nursing Vital Signs Nursing Vital Signs: Initial Vital Signs Pulse Rate 74 02/02/24 08:42 Respiratory Rate 13 02/02/24 08:42 Blood Pressure 135/77 02/02/24 08:42 Pain Scale Pain Intensity 3 - [place] Coma Scale Best Eye Response (Joseph): (4) open spontaneously Best Verbal Response ([place]): (5) oriented Best Motor Response ([place]): (6) obeys commands [place] Total: 15 - Physical Exam General Appearance: no apparent distress, alert, anxiety Eye Exam: bilateral eye: normal inspection, PERRL, EOMI Ears, Nose, Throat Exam: normal ENT inspection, pharynx normal, moist mucous membranes Neck Exam: normal inspection, non-tender, supple, full range of motion Respiratory: normal breath sounds, lungs clear, airway intact, No chest tenderness, No respiratory distress Cardiovascular: regular rate/rhythm, normal heart sounds, normal peripheral pulses Gastrointestinal: soft, normal bowel sounds, No tenderness Pelvic Exam: not done Rectal Exam: not done Back Exam: normal inspection, normal range of motion, No CVA tenderness, No vertebral tenderness Extremity Exam: normal inspection, normal range of motion, pelvis stable Mental Status: alert, oriented x 3, 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 STAT Care 02/02/24 09:08 Active Clean Catch Urine Specimen STAT Care 02/02/24 09:04 Active EKG-ER Only STAT Care 02/02/24 09:04 Active IV Insertion STAT Care 02/02/24 09:04 Active Pulse Oximetry (ED) STAT Care 02/02/24 09:04 Active HEAD WITHOUT CONTRAST [CT] Stat Exams 02/02/24 09:04 Completed CBC W DIFF Stat Lab 02/02/24 09:30 Completed CMP Stat Lab 02/02/24 09:30 Completed TROPONIN Q4H Lab 02/02/24 09:30 Completed TROPONIN Q4H Lab 02/02/24 13:15 Ordered TROPONIN Q4H Lab 02/02/24 17:15 Ordered TROPONIN Q4H Lab 02/02/24 21:15 Ordered UA W/RFX UR CULTURE Stat Lab 02/02/24 09:45 Completed Urine Triage Profile Stat Lab 02/02/24 09:45 Completed Medication Summary Discontinued Medications Generic Name Dose Route Start Last Admin Trade Name Freq PRN Reason Stop Dose Admin Methylprednisolone Sodium 0 mg 02/02/24 09:09 02/02/24 09:42 Succinate 125 mg/ Sterile IV 02/02/24 09:10 125 mg Water 2 ml STAT ONE Administration Diphenhydramine HCl 25 mg 02/02/24 09:09 02/02/24 09:41 Diphenhydramine Hcl 50 Mg/Ml Vial IV 02/02/24 09:10 25 mg STAT ONE Administration Diphenhydramine HCl Confirm 02/02/24 09:34 Diphenhydramine Hcl 50 Mg/Ml Vial Administered 02/02/24 09:35 Dose 50 mg .ROUTE .STK-MED ONE Sodium Chloride 1,000 mls @ 999 mls/hr 02/02/24 09:04 02/02/24 10:43 Sodium Chloride 0.9% 1000 Ml IV 02/02/24 10:04 Infused .Q1H1M STA Infusion Sodium Chloride Confirm 02/02/24 09:34 Sodium Chloride 0.9% 1000 Ml Administered 02/02/24 09:35 Dose 1,000 mls @ ud .ROUTE .STK-MED ONE Methylprednisolone Sodium Succinate Confirm 02/02/24 09:34 Methylprednis Sod Succ 125 Mg/2 Ml Vial Administered 02/02/24 09:35 Dose 125 mg .ROUTE .STK-MED ONE Sterile Water Confirm 02/02/24 09:34 Water For Injection,Sterile 10 Ml Vial Administered 02/02/24 09:35 Dose 10 ml IJ .STK-MED ONE Lab/Rad Data: Laboratory Result Diagrams 02/02/24 09:30 02/02/24 09:30 Laboratory Results 02/02/24 02/02/24 02/02/24 Range/Units 09:45 09:45 09:30 WBC (3.98-10.04) x10^3/uL RBC (3.93-5.22) x10^6/uL Hgb (11.2-15.7) g/dL Hct (34.1-44.9) % MCV (79.4-94.8) fL MCH (25.6-32.2) pg MCHC (32.2-35.5) g/dL RDW (11.7-14.4) % Plt Count (182-369) x10^3/uL MPV (9.4-12.3) fL Gran % (34.0-71.1) % Immature Gran % (Auto) (0.001-0.429) % Nucleat RBC Rel Count (0.00-0.2) % Eos # (Auto) (0.04-0.36) x10^3/uL Immature Gran # (Auto) (0.001-0.031) x10^3u/L Absolute Lymphs (auto) (1.18-3.74) x10^3/uL Absolute Monos (auto) (0.24-0.86) x10^3/uL Absolute Nucleated RBC (0.00-0.012) x10^3u/L Lymphocytes % (19.3-51.7) % Monocytes % (4.7-12.5) % Eosinophils % (0.7-5.8) % Basophils % (0.1-1.2) % Absolute Granulocytes (1.56-6.13) x10^3/uL Basophils # (0.01-0.08) x10^3/uL Sodium (135-145) mmol/L Potassium (3.5-5.1) mmol/L Chloride (98-107) mmol/L Carbon Dioxide (22-30) mmol/L Anion Gap (5-15) MEQ/L BUN (7-17) mg/dL Creatinine (0.52-1.04) mg/dL Estimated GFR ML/MIN Glucose (74-106) mg/dL Calcium (8.4-10.2) mg/dL Total Bilirubin (0.2-1.3) mg/dL AST (14-36) U/L ALT (0-35) U/L Alkaline Phosphatase (38-126) U/L Troponin I < 0.012 (0.000-0.033) ng/mL Serum Total Protein (6.3-8.2) g/dL Albumin (3.5-5.0) g/dL Urine Color Yellow (Yellow) Urine Appearance Clear (Clear) Urine pH 7.5 (4.6-8.0) Ur Specific [place] >=1.030 A (1.005-1.030) Urine Protein Negative (Negative) Urine Glucose (UA) Negative (Negative) mg/dL Urine Ketones Negative (Negative) Urine Blood Negative (Negative) Urine Nitrite Negative (Negative) Urine Bilirubin Negative (Negative) Urine Urobilinogen 1.0 A (0.2) mg/dL Ur Leukocyte Esterase Trace A (Negative) U Hyaline Cast (Auto) NONE SEEN (0-2) /LPF Urine Microscopic RBC 0-2 (0-5) /HPF Urine Microscopic WBC 3-5 (0-5) /HPF Ur Epithelial Cells Few (None Seen) /HPF Urine Bacteria Few A (None Seen) /HPF Urine Culture Reflexed NO (NO) Urine Opiates Level NEGATIVE (NEGATIVE) Ur Methadone NEGATIVE (NEGATIVE) Urine Barbiturates NEGATIVE (NEGATIVE) Ur Phencyclidine (PCP) NEGATIVE (NEGATIVE) Urine Amphetamine NEGATIVE (NEGATIVE) U Benzodiazepine Level NEGATIVE (NEGATIVE) Urine Cocaine NEGATIVE (NEGATIVE) Urine Marijuana (THC) NEGATIVE (NEGATIVE) 02/02/24 02/02/24 Range/Units 09:30 09:30 WBC 8.2 (3.98-10.04) x10^3/uL RBC 4.23 (3.93-5.22) x10^6/uL Hgb 13.7 (11.2-15.7) g/dL Hct 40.0 (34.1-44.9) % MCV 94.6 (79.4-94.8) fL MCH 32.4 H (25.6-32.2) pg MCHC 34.3 (32.2-35.5) g/dL RDW 12.4 (11.7-14.4) % Plt Count 285 (182-369) x10^3/uL MPV 9.6 (9.4-12.3) fL Gran % 72.6 H (34.0-71.1) % Immature Gran % (Auto) 0.6 H (0.001-0.429) % Nucleat RBC Rel Count 0.0 (0.00-0.2) % Eos # (Auto) 0.12 (0.04-0.36) x10^3/uL Immature Gran # (Auto) 0.05 H (0.001-0.031) x10^3u/L Absolute Lymphs (auto) 1.71 (1.18-3.74) x10^3/uL Absolute Monos (auto) 0.32 (0.24-0.86) x10^3/uL Absolute Nucleated RBC 0.00 (0.00-0.012) x10^3u/L Lymphocytes % 20.9 (19.3-51.7) % Monocytes % 3.9 L (4.7-12.5) % Eosinophils % 1.5 (0.7-5.8) % Basophils % 0.5 (0.1-1.2) % Absolute Granulocytes 5.95 (1.56-6.13) x10^3/uL Basophils # 0.04 (0.01-0.08) x10^3/uL Sodium 140 (135-145) mmol/L Potassium 4.3 (3.5-5.1) mmol/L Chloride 112 H (98-107) mmol/L Carbon Dioxide 20 L (22-30) mmol/L Anion Gap 12.5 (5-15) MEQ/L BUN 19 H (7-17) mg/dL Creatinine 0.63 (0.52-1.04) mg/dL Estimated GFR 105.4 ML/MIN Glucose 101 (74-106) mg/dL Calcium 9.3 (8.4-10.2) mg/dL Total Bilirubin 0.50 (0.2-1.3) mg/dL AST 68 H (14-36) U/L ALT 134 H (0-35) U/L Alkaline Phosphatase 98 (38-126) U/L Troponin I (0.000-0.033) ng/mL Serum Total Protein 6.2 L (6.3-8.2) g/dL Albumin 3.8 (3.5-5.0) g/dL Urine Color (Yellow) Urine Appearance (Clear) Urine pH (4.6-8.0) Ur Specific [place] (1.005-1.030) Urine Protein (Negative) Urine Glucose (UA) (Negative) mg/dL Urine Ketones (Negative) Urine Blood (Negative) Urine Nitrite (Negative) Urine Bilirubin (Negative) Urine Urobilinogen (0.2) mg/dL Ur Leukocyte Esterase (Negative) U Hyaline Cast (Auto) (0-2) /LPF Urine Microscopic RBC (0-5) /HPF Urine Microscopic WBC (0-5) /HPF Ur Epithelial Cells (None Seen) /HPF Urine Bacteria (None Seen) /HPF Urine Culture Reflexed (NO) Urine Opiates Level (NEGATIVE) Ur Methadone (NEGATIVE) Urine Barbiturates (NEGATIVE) Ur Phencyclidine (PCP) (NEGATIVE) Urine Amphetamine (NEGATIVE) U Benzodiazepine Level (NEGATIVE) Urine Cocaine (NEGATIVE) Urine Marijuana (THC) (NEGATIVE) - Progress Progress: improved, re-examined Progress Note: 02/02/24 09:28 My medical decision making and the assignment of moderate complexity to this patient's medical issue today is based on review of the patient's past medical history, review of the patient's medication list, review the patient drug allergy list, history present illness and physical findings on examination. The workup in this patient includes placement of an intravenous line, infusion of intravenous Benadryl and Solu-Medrol, infusion of crystalloid solution, CBC, CMP, troponin level, twelve-lead EKG, CT scan of the head, urinalysis, urine drug triage. Differential diagnosis includes but is not limited to allergic reaction to contrast dye, urinary tract infection, acute intracranial abnormality, electrolyte abnormalities, arrhythmia, myocardial infarction 02/02/24 11:48 I interpreted the patient's laboratory data results. Based on the laboratory data results, there are no acute, emergent medical issues. The CT scan of the head without contrast was interpreted by the radiologist and I reviewed the impression. The impression states normal CT scan of the head wi thout contrast exam Counseled pt/family regarding: lab results, diagnosis, need for follow-up, rad results Medical Desision Making - Independent Historian Additional History obtained from: Spouse - Diagnostic Testing Diagnostic test were ordered, analyzed, and reviewed by me: Yes Radiological Interpretation: Reviewed by me, Teleradiologist Report - Risk of complications The pt has a mod risk of morbidity or mortality based on: Need for prescription drug management - Departure Departure Disposition: Home Clinical Impression: Contrast media allergy Condition: Stable Critical Care Time: No Referrals: MAXWELL WAGNER MD [Primary Care Provider] - Follow up/PCP as directed Additional Instructions: Drink plenty of fluids. Take Benadryl 25 mg orally 3 times a day for the next 4 days. Take your prednisone and other medication as prescribed. Call your primary care provider today to make arranges for follow-up appointment to be seen in the next 3 to 5 days. Prescriptions: Prednisone 10 mg [Deltasone 10 mg] 10 mg PO TID #12 tablet
[2024-02-02 08:53] VITALS: TEMP 97.8
[2024-02-02 09:33] LABS: Absolute Neutrophil Ct (ANC) 5.95 x10^3/uL (1.56-6.13); BASOPHIL % 0.5 % (0.1-1.2); Basophil (Absolute #) 0.04 x10^3/uL (0.01-0.08); Eosinophil % 1.5 % (0.7-5.8); Eosinophil (Absolute #) 0.12 x10^3/uL (0.04-0.36); Hemoglobin 13.7 g/dL (11.2-15.7); IMMATURE GRAN # 0.05 x10^3u/L (0.001-0.031); IMMATURE GRAN % 0.6 % (0.001-0.429); Lymphocyte (Absolute #) 1.71 x10^3/uL (1.18-3.74); Lymphocytes % 20.9 % (19.3-51.7); Mean Cell Volume 94.6 fL (79.4-94.8); Mean Corpuscular Hemoglobin 32.4 pg (25.6-32.2); Mean Corpuscular Hgb Concent. 34.3 g/dL (32.2-35.5); Mean Platelet Volume 9.6 fL (9.4-12.3); Monocyte (Absolute #) 0.32 x10^3/uL (0.24-0.86); Monocytes % 3.9 % (4.7-12.5); Neutrophil % 72.6 % (34.0-71.1); Platelet Count 285 x10^3/uL (182-369); Red Blood Count 4.23 x10^6/uL (3.93-5.22); Red Cell Distribution Width 12.4 % (11.7-14.4); White Blood Count 8.2 x10^3/uL (3.98-10.04)
[2024-02-02] MEDS ORDERED: Sodium Chloride 0.9% 1000 ML 1,000 ML ONE (09:34)
[2024-02-02] MEDS ORDERED: solu-MEDROL ONE (09:34)
[2024-02-02] MEDS ORDERED: Sterile H2O 10 ml IJ ONE (09:34)
[2024-02-02] MEDS ORDERED: BENADRYL 50 MG/ML ONE (09:34)
[2024-02-02] MEDS: Sodium Chloride 0.9% 1000 ML 1,000 ML IV STA (09:39)
[2024-02-02] MEDS: BENADRYL 50 MG/ML IV ONE (09:41)
[2024-02-02] MEDS: solu-MEDROL 125 MG, Sterile H2O 10 ml 2 ML IV ONE (09:42)
[2024-02-02 09:55] LABS: ALBUMIN 3.8 g/dL (3.5-5.0); ANION GAP 12.5 MEQ/L (5-15); BILIRUBIN,TOTAL 0.5 mg/dL (0.2-1.3); Calcium 9.3 mg/dL (8.4-10.2); Creatinine 1 0.63 mg/dL (0.52-1.04); EST GLOMERULAR FILTRATION RATE 105.4 ML/MIN; Potassium 4.3 mmol/L (3.5-5.1); Total Protein 6.2 g/dL (6.3-8.2)
[2024-02-02 10:05] LABS: Appearance Clear (Clear); Bacteria Few /HPF (None Seen); Bilirubin Negative (Negative); Blood Negative (Negative); Epithelial Cells Few /HPF (None Seen); Glucose, Urine Negative (Negative); Hyaline Casts NONE SEEN /LPF (0-2); Ketones Negative (Negative); Leukocyte Esterase Trace (Negative); Nitrite Negative (Negative); Ph 7.5 (4.6-8.0); Protein,Urine Dip Negative (Negative); RBC 0-2 /HPF (0-5); Specific Gravity >=1.030 (1.005-1.030)
[2024-02-02 10:13] LABS: Amphetamine,Urine NEGATIVE (NEGATIVE); Barbiturate,Urine NEGATIVE (NEGATIVE); Benzodiazepine,Urine NEGATIVE (NEGATIVE); Cocaine,Urine NEGATIVE (NEGATIVE); Methadone,Urine NEGATIVE (NEGATIVE); Opiate,Urine NEGATIVE (NEGATIVE); PCP,Urine NEGATIVE (NEGATIVE); THC,Urine NEGATIVE (NEGATIVE)
--- NOTE | 2024-02-02 11:16 | XRAY ---
Indication: Headache following CTA chest exam earlier in the day. Seizure. Multiple contiguous axial images obtained through the head without contrast. Comparison: None Normal appearing brain parenchyma, ventricles, and bony calvarium. Visualized paranasal sinuses and mastoid air cells are clear. Impression: Normal CT head without contrast exam.
[2024-02-02 11:40] VITALS: BP 94/63; PULSE 72; RESP 18; O2SAT 96
== END 2024-02-02 12:00 | disposition home or self-care (01) ==
LOC: ED 08:42
DX: R40.4 Transient alteration of awareness (principal); T50.8X5A Adverse effect of diagnostic agents, initial encounter; Y92.538 Other ambulatory health services establishments as the place of occurrence of the external cause; L29.9 Pruritus, unspecified; I10 Essential (primary) hypertension; Z79.891 Long term (current) use of opiate analgesic; Z79.52 Long term (current) use of systemic steroids; Z79.899 Other long term (current) drug therapy; Z72.0 Tobacco use; Z63.4 Disappearance and death of family member
CPT/HCPCS: 36415; 70450; 80053; 80307; 81001; 84484; 85025; 93005; 93041; 94760; 96360; 96374; 96375; 99284; 99285; J1200; J2919